=== PATIENT | female | born 1925 | race Caucasian/White ===

== ENCOUNTER 2016-11-14 23:25 | Emergency (ER) | payer MEDICARE, BC ==
[2016-11-14] MEDS ORDERED: Aspirin Low Dose CHEW TAB* 81 MG PO ONE (23:29)
[2016-11-15 00:13] LABS: Hematocrit 47 % (35-47); Hemoglobin 15.6 g/dl (12.0-16.0); Mean Corpuscular HGB Conc 33 g/dl (31-36); Mean Corpuscular Hemoglobin 30 pg (27-31); Mean Corpuscular Volume 89 fL (80-97); Mean Platelet Volume 9 um3 (7.4-10.4); Red Blood Count 5.25 10^6/ul (4.0-5.4); Red Cell Distribution Width 13 % (10.5-15)
[2016-11-15 00:26] LABS: Albumin 4.3 g/dL (3.2-5.2); BUN/Creatinine Ratio 24.1 (8-20); Calcium 9.5 mg/dL (8.6-10.3); EGFR African American 88.1 (>60); EGFR Non-African American 68.5 (>60); Globulin 3.5 g/dL (2-4); Magnesium 2.3 mg/dL (1.9-2.7); Potassium 3.7 mmol/L (3.5-5.0); Total Bilirubin 0.5 mg/dL (0.2-1.0); Total Protein 7.8 g/dL (6.4-8.9)
--- NOTE | 2016-11-15 00:31 | ED ---
I, Oh,Cele, scribed for Devonte Fox MD on 11/14/16 at 2338 . Complex/Multi-Sys Presentation - HPI Summary HPI Summary: This 89 y/o female presents to ED for vague complaints of "just not feeling right" [employer] while watching TV. Pt reports tingling paresthesia at her face, dizziness, numbness at left facial numbness, and chest pressure, all of which are resolved by the time of arrival. Pt saw Dr. Morrison today and had her metoprolol changed from bid to qd due to her bradycardia. Blood pressure of 201/ 78 is noted at time of triage. - History Of Current Complaint Hx Obtained From: Patient Onset/Duration: Sudden Onset Timing: Intermittent, Lasting:, Minutes Severity Currently: None Severity Initially: Mild Associated Signs And Symptoms: Positive: Dizziness, Chest Pain - chest pressure , Other - numbness and tingling at left sided face. Negative: Fever - Allergies/Home Medications Allergies/Adverse Reactions: Allergies Allergy/AdvReac Type Severity Reaction Status Date / Time BRAZIL NUTS Allergy SWELLING Uncoded 11/17/15 08:27 OF LIPS AND MOUTH LOBSTER Allergy RESTLESS Uncoded 11/17/15 08:27 LEGS PMH/Surg Hx/FS Hx/Imm Hx Endocrine/Hematology History: Reports: Hx Thyroid Disease - YISSEL'S THYROIDITIS Cardiovascular History: Reports: Hx Angina, Hx Hypertension - CONTROL WITH MEDICATION, Other Cardiovascular Problems/Disorders - recent carotid endortectomy Denies: Hx Pacemaker/ICD Respiratory History: Reports: Hx Pneumonia - age of 5yo Sensory History: Reports: Hx Cataracts - hx/surgery, Hx Contacts or Glasses, Hx Hearing Aid, Hx Hearing Problem Opthamlomology History: Reports: Hx Cataracts - hx/surgery, Hx Contacts or Glasses Neurological History: Reports: Hx Transient Ischemic Attacks (TIA) - s/p endarterectomy Psychiatric History: Denies: Hx Panic Disorder - Cancer History Cancer Type, Location and Year: Skin Hx Chemotherapy: No Hx Radiation Therapy: No Hx Palliative Cancer Treatment: No - Surgical History Surgery Procedure, Year, and Place: Bovine patch carotid 2014. HYSTERECTOMY, [facility] [place]. MOHS SURGERY WITH RECONSTRUCTION RIGHT CHEEK, [place] AND [facility] [place]. 2011 COLONOSCOPY, [facility] [place] Hx Anesthesia Reactions: No Infectious Disease History: Denies: Traveled Outside the [place] in Last 30 Days - Family History Known Family History: Positive: Cardiac Disease - Social History Alcohol Use: None Hx Substance Use: No Substance Use Type: Reports: None Hx Tobacco Use: No Smoking Status (MU): Never Smoked Tobacco Review of Systems Negative: Fever Positive: Chest Pain - chest pressure Neurological: Other - Positive for dizziness Positive: Paresthesia - tingling at face, Numbness - left sided face All Other Systems Reviewed And Are Negative: Yes Physical Exam Triage Information Reviewed: Yes Vital Signs On Initial Exam: Initial Vitals Temp Pulse Resp BP Pulse Ox 98.1 F 78 17 201/78 97 11/14/16 23:31 11/14/16 23:31 11/14/16 23:31 11/14/16 23:31 11/14/16 23:31 Vital Signs Reviewed: Yes Appearance: Positive: Well-Appearing, No Pain Distress Skin: Positive: Warm Head/Face: Positive: Normal Head/Face Inspection Eyes: Positive: ALTON ENT: Positive: Hearing grossly normal Neck: Positive: Supple Respiratory/Lung Sounds: Positive: Breath Sounds Present Cardiovascular: Positive: RRR Abdomen Description: Positive: Nontender, Soft Bowel Sounds: Positive: Present Musculoskeletal: Positive: Strength/ROM Intact Neurological: Positive: Sensory/Motor Intact, Alert, Oriented to Person Place, Time, Normal Gait Psychiatric: Positive: Affect/Mood Appropriate Diagnostics - Vital Signs Vital Signs Temp Pulse Resp BP Pulse Ox 11/14/16 23:31 98.1 F 78 17 201/78 97 - Laboratory Lab Results: Lab Results 11/14/16 11/14/16 Range/Units 23:58 23:58 WBC 7.0 (3.5-10.8) 10^3/ul RBC 5.25 (4.0-5.4) 10^6/ul Hgb 15.6 (12.0-16.0) g/dl Hct 47 (35-47) % MCV 89 (80-97) fL MCH 30 (27-31) pg MCHC 33 (31-36) g/dl RDW 13 (10.5-15) % Plt Count 196 (150-450) 10^3/ul MPV 9 (7.4-10.4) um3 Neut % (Auto) 74.0 (38-83) % Lymph % (Auto) 18.4 L (25-47) % [place] % (Auto) 6.0 (1-9) % Eos % (Auto) 0.6 (0-6) % Baso % (Auto) 1.0 (0-2) % Absolute Neuts (auto) 5.2 (1.5-7.7) 10^3/ul Absolute Lymphs (auto) 1.3 (1.0-4.8) 10^3/ul Absolute Monos (auto) 0.4 (0-0.8) 10^3/ul Absolute Eos (auto) 0 (0-0.6) 10^3/ul Absolute Basos (auto) 0.1 (0-0.2) 10^3/ul Absolute Nucleated RBC 0.01 10^3/ul Nucleated RBC % 0.2 Sodium 136 (133-145) mmol/L Potassium 3.7 (3.5-5.0) mmol/L Chloride 103 (101-111) mmol/L Carbon Dioxide 25 (22-32) mmol/L Anion Gap 8 (2-11) mmol/L BUN 19 (6-24) mg/dL Creatinine 0.79 (0.51-0.95) mg/dL Est GFR ( Amer) 88.1 (>60) Est GFR (Non-Af Amer) 68.5 (>60) BUN/Creatinine Ratio 24.1 H (8-20) Glucose 101 H (70-100) mg/dL Calcium 9.5 (8.6-10.3) mg/dL Magnesium 2.3 (1.9-2.7) mg/dL Total Bilirubin 0.50 (0.2-1.0) mg/dL AST 46 H (13-39) U/L ALT 12 (7-52) U/L Alkaline Phosphatase 89 (34-104) U/L Troponin I 0.00 (<0.04) ng/mL Total Protein 7.8 (6.4-8.9) g/dL Albumin 4.3 (3.2-5.2) g/dL Globulin 3.5 (2-4) g/dL Albumin/Globulin Ratio 1.2 (1-3) Result Diagrams: 11/14/16 23:58 11/14/16 23:58 Lab Statement: Any lab studies that have been ordered have been reviewed, and results considered in the medical decision making process. - Radiology CXR Radiology Interpretation Completed By: ED Physician - See EMR for official reading - CT Brain CT Interpretation: No Acute Changes - No acute intracranial pathology. Mild left mastoiditis. CT Interpretation Completed By: Radiologist - EKG 0118 Cardiac Rate: NL - 70 bpm EKG Rhythm: Sinus Rhythm Re-Evaluation - Re-Evaluation First Eval Change: Improved Complex Multi-Symp Course/Dx - Diagnoses Provider Diagnoses: Chest pain, Hypertension Discharge - Discharge Plan Condition: Improved Disposition: HOME Patient Education Materials: Chest Pain (ED), Hypertension (ED) Referrals: Arnie Samayoa MD [Primary Care Provider] - 2 Days The documentation as recorded by the Iftikhar waldrop Soohyun accurately reflects the service I personally performed and the decisions made by , Devonte Fox MD.
[2016-11-15 06:03] VITALS: BP 136/50
--- NOTE | 2016-11-15 07:26 | RAD ---
INDICATION: Chest pain COMPARISON: February 12, 2014 TECHNIQUE: PA and lateral dual-energy views were obtained. FINDINGS: Bones/Soft Tissues: There are no acute bony findings. There is osteopenia with kyphosis Cardiomediastinal: The cardiomediastinal silhouette is normal. Lungs: There are no acute infiltrates. There is minimal left basilar scarring or atelectasis, unchanged. Pleura: There are no pleural effusions. Other: None IMPRESSION: NO ACTIVE DISEASE.
--- NOTE | 2016-11-15 07:28 | RAD ---
INDICATION: Paresthesias COMPARISON: MRI brain May 13, 2016; CT brain May 13, 2016 TECHNIQUE: Noncontrast axial source images were acquired from the skull base to the vertex. FINDINGS: Ventricles/sulci: The ventricles and cisterns are normal in size and configuration for age. Brain parenchyma: There is no focal parenchymal finding, evidence of intracranial mass, or intracranial mass effect. Intracranial hemorrhage:None. Extra-axial spaces: There are no abnormal extra axial fluid collections or evidence of extra-axial mass. Calvarium: There is no calvarial fracture or other calvarial abnormality. Scalp: There is no evidence of scalp or extracalvarial soft tissue abnormality. Paranasal sinuses/mastoid: The paranasal sinuses and mastoid air cells are clear. Other: None. IMPRESSION: NO ACUTE INTRACRANIAL FINDINGS.
== END 2016-11-15 05:45 | disposition home or self-care (01) ==
LOC: ED 23:25
DX: R07.9 Chest pain, unspecified (principal); I10 Essential (primary) hypertension; R42 Dizziness and giddiness; R20.0 Anesthesia of skin
CPT/HCPCS: 36415; 70450; 71020; 80053; 83735; 84484; 85025; 93005; 99284; A9270-GY